=== PATIENT | female | born 1990 | race Caucasian/White ===

== ENCOUNTER 2023-06-02 21:10 | Emergency (ER) | payer MEDICAID ==
[~2023-06-02] VITALS: Ht 154.9 cm; Wt 39.5 kg
[2023-06-02 21:51] VITALS: BP 104/64; TEMP 98.6; O2SAT 99
== END 2023-06-02 21:52 | disposition home or self-care (01) ==
LOC: ER 21:24
DX: R51.9 Headache, unspecified (principal); Z98.890 Other specified postprocedural states; Z60.2 Problems related to living alone

== ENCOUNTER 2024-02-19 08:20 | Emergency (ER) | payer MEDICAID ==
[~2024-02-19] VITALS: Ht 154.9 cm; Wt 40.8 kg
[2024-02-19] MEDS ORDERED: LORAZEPAM 1 MG TABLET ONE (08:40)
[2024-02-19] MEDS: LORAZEPAM 1 MG TABLET PO ONE (08:47)
[2024-02-19 09:32] LABS: PREGNANCY TEST URINE QUAL NEGATIVE (NEGATIVE)
[2024-02-19] MEDS ORDERED: LORA-259 PO (10:12)
[2024-02-19 10:28] VITALS: BP 128/70; TEMP 98.7; O2SAT 98
== END 2024-02-19 10:37 | disposition home or self-care (01) ==
LOC: ER 08:25
DX: F41.9 Anxiety disorder, unspecified (principal); M41.9 Scoliosis, unspecified; D64.9 Anemia, unspecified; Z88.6 Allergy status to analgesic agent
CPT/HCPCS: 82962-TC; 84703-TC